=== PATIENT | female | born 1955 | race Caucasian/White ===

== ENCOUNTER 2023-03-25 21:36 | Inpatient (IN) ==
[2023-03-25] MEDS ORDERED: Etomidate 20 mg/10 ml 2 MG/ML 10 ml VIAL IV ONE (22:08)
[2023-03-25] MEDS ORDERED: Metoprolol Tartrate 5 mg VIAL 5 ml VIAL (1 mg/ml) IV ONE (22:17)
[2023-03-25 22:18] LABS: ABS Eosinophils 0.1 10^3/uL (0.0-0.5); ABS Lymphocytes 3.7 10^3/uL (1.0-4.8); ABS Monocytes 0.2 10^3/uL (0.0-0.9); ABS Nucleated RBC 0.08 10^3/ul; Eosinophil % 0.5 %; Hematocrit 43.9 % (35-45); Hemoglobin 13.9 g/dL (11.5-14.3); Lymphocyte % 33.8 %; Mean Corpuscular Hemoglobin 32.4 pg (27-33); Mean Corpuscular Hgb Conc 31.7 g/dL (31-36); Mean Corpuscular Volume 102.3 fL (80-97); Mean Platelet Volume 8.8 fL (7.5-11.2); Nucleated Red Blood Cells % 0.7 %/100WBC (0.0-0.8); Platelet Count 289 10^3/uL (150-450); Red Blood Count 4.29 10^6/uL (3.63-4.92); Red Cell Distribution Width 17.3 % (12-17)
[2023-03-25 22:32] LABS: INR 1.94 (0.83-1.13)
[2023-03-25 22:43] LABS: Albumin 3.8 g/dL (3.2-5.2); Calcium 9.4 mg/dL (8.6-10.3); Creatinine, Serum 1.97 mg/dL (0.51-0.95); Globulin 3.8 g/dL (2-4); Magnesium 2.3 mg/dL (1.9-2.7); Total Bilirubin 1.6 mg/dL (0.2-1.0); Total Protein 7.6 g/dL (6.4-8.9); eGFR CKD-EPI 26.9 (>60)
[2023-03-25 22:44] LABS: Potassium 3.4 mmol/L (3.5-5.0)
[2023-03-25] MEDS ORDERED: Potassium Chlor 20 meq TAB.ER PO ONE (23:21)
[2023-03-25 23:53] LABS: High Sensitivity Troponin 1 Hr 44 pg/mL (<15)
[2023-03-26] MEDS ORDERED: LISINOPRIL 10 MG PO PRN (04:19)
[2023-03-26] MEDS ORDERED: NS 0.9% 500 ml BAG 500 ML IV ONE (04:37)
[2023-03-26 05:40] LABS: ABS Basophils 0.1 10^3/uL (0.0-0.1); ABS Lymphocytes 1.6 10^3/uL (1.0-4.8); ABS Monocytes 0.2 10^3/uL (0.0-0.9); ABS Neutrophils 7.8 10^3/uL (1.5-7.6); ABS Nucleated RBC 0.02 10^3/ul; Hematocrit 36.4 % (35-45); Hemoglobin 12.1 g/dL (11.5-14.3); Lymphocyte % 16.1 %; Mean Corpuscular Hemoglobin 32.4 pg (27-33); Mean Corpuscular Hgb Conc 33.3 g/dL (31-36); Mean Corpuscular Volume 97.4 fL (80-97); Nucleated Red Blood Cells % 0.2 %/100WBC (0.0-0.8); Platelet Count 234 10^3/uL (150-450); Red Blood Count 3.74 10^6/uL (3.63-4.92); Red Cell Distribution Width 16.2 % (12-17); White Blood Count 9.6 10^3/uL (3.8-11.8)
[2023-03-26 06:06] LABS: ALT 106 U/L (7-52); Albumin 3.5 g/dL (3.2-5.2); Albumin/Globulin Ratio 1.1 (1-3); Alkaline Phosphatase 152 U/L (35-149); Anion Gap 6 mmol/L (2-16); Blood Urea Nitrogen 21 mg/dL (6-24); CO2 Carbon Dioxide 26 mmol/L (22-32); Calcium 9.1 mg/dL (8.6-10.3); Chloride 108 mmol/L (101-111); Creatinine, Serum 1.62 mg/dL (0.51-0.95); Globulin 3.2 g/dL (2-4); Glucose 94 mg/dL (70-100); Sodium 140 mmol/L (135-145); Total Bilirubin 0.8 mg/dL (0.2-1.0); Total Protein 6.7 g/dL (6.4-8.9)
[2023-03-26 06:43] LABS: TSH Ultra Thyroid Stim Horm 0.57 mcIU/mL (0.34-5.60)
[2023-03-26 11:37] LABS: Activated Partial Thrombo Time 32.3 seconds (26.0-38.0); INR 2.23 (0.83-1.13)
[2023-03-26] MEDS: FLUTICAS/UMECLI/VILANT 100-62.5-25 MDI (NF) INH SCH (12:06)
[2023-03-26] MEDS: KCL 20 MEQ/100 ML IVPREMIX 20 MEQ/100 ML BAG IV SCH ×2 (14:21→17:45)
[2023-03-26] MEDS ORDERED: Sulfur Hexaflouride MICROSPHR 25 MG VIAL ONE (15:50)
[2023-03-26 19:56] LABS: Calcium 8.9 mg/dL (8.6-10.3); Creatinine, Serum 1.36 mg/dL (0.51-0.95); Potassium 3.8 mmol/L (3.5-5.0); eGFR CKD-EPI 41.9 (>60)
[2023-03-26] MEDS: Heparin 5000 UNITS/ML 1 mL VIAL SUBCUT SCH (20:44)
[2023-03-27 05:58] LABS: ABS Eosinophils 0.1 10^3/uL (0.0-0.5); ABS Lymphocytes 1.8 10^3/uL (1.0-4.8); ABS Monocytes 0.3 10^3/uL (0.0-0.9); ABS Neutrophils 3.2 10^3/uL (1.5-7.6); ABS Nucleated RBC 0.02 10^3/ul; Hematocrit 34.7 % (35-45); Hemoglobin 11.3 g/dL (11.5-14.3); Lymphocyte % 33.4 %; Mean Corpuscular Hemoglobin 32.2 pg (27-33); Mean Corpuscular Hgb Conc 32.6 g/dL (31-36); Mean Corpuscular Volume 98.9 fL (80-97); Nucleated Red Blood Cells % 0.4 %/100WBC (0.0-0.8); Platelet Count 197 10^3/uL (150-450); Red Blood Count 3.51 10^6/uL (3.63-4.92); White Blood Count 5.4 10^3/uL (3.8-11.8)
[2023-03-27 06:16] LABS: Calcium 8.9 mg/dL (8.6-10.3); Creatinine, Serum 1.25 mg/dL (0.51-0.95); Potassium 4.2 mmol/L (3.5-5.0); eGFR CKD-EPI 46.4 (>60)
[2023-03-27] MEDS: FLUTICAS/UMECLI/VILANT 100-62.5-25 MDI (NF) INH SCH (07:45)
[2023-03-27 08:16] LABS: Magnesium 1.9 mg/dL (1.9-2.7)
[2023-03-27] MEDS: Heparin 5000 UNITS/ML 1 mL VIAL SUBCUT SCH (10:16)
[2023-03-27] MEDS ORDERED: Magnesium Sulfate 2 gm BAG 2 GM/50 ML BAG IVPB ONE (12:05)
[2023-03-27] MEDS ORDERED: Lactated Ringers 1000 ml BAG 500 ML IV ONE (14:56)
[2023-03-27] MEDS: Enoxaparin 100 MG/ML SYR SUBCUT SCH (17:28)
[2023-03-28] MEDS: Enoxaparin 100 MG/ML SYR SUBCUT SCH ×2 (05:44→17:54)
[2023-03-28 06:30] LABS: Calcium 8.7 mg/dL (8.6-10.3); Creatinine, Serum 1.11 mg/dL (0.51-0.95); Potassium 4.2 mmol/L (3.5-5.0); eGFR CKD-EPI 53.5 (>60)
[2023-03-28] MEDS: FLUTICAS/UMECLI/VILANT 100-62.5-25 MDI (NF) INH SCH (07:58)
[2023-03-29] MEDS: Enoxaparin 100 MG/ML SYR SUBCUT SCH ×2 (05:53→17:22)
[2023-03-29] MEDS ORDERED: Lactated Ringers 1000 ml BAG 1,000 ML IV ONE (07:30)
[2023-03-29] MEDS: FLUTICAS/UMECLI/VILANT 100-62.5-25 MDI (NF) INH SCH (07:37)
[2023-03-29 12:02] LABS: Calcium 8.6 mg/dL (8.6-10.3); Creatinine, Serum 0.93 mg/dL (0.51-0.95); Potassium 4.1 mmol/L (3.5-5.0); eGFR CKD-EPI 66.1 (>60)
[2023-03-30 06:38] LABS: Calcium 8.6 mg/dL (8.6-10.3); Potassium 3.9 mmol/L (3.5-5.0); eGFR CKD-EPI 60.6 (>60)
[2023-03-30] MEDS: FLUTICAS/UMECLI/VILANT 100-62.5-25 MDI (NF) INH SCH (07:15)
[2023-03-30 08:33] LABS: Magnesium 1.8 mg/dL (1.9-2.7)
[2023-03-30] MEDS ORDERED: Heparin 1,000 UNIT/ML 10 ml (10,000 UNITS) CATHLAB/DIALYSIS ONE (08:59)
[2023-03-30] MEDS ORDERED: VERAPAMIL 2.5 MG/ML 2 ML VIAL ** 5 mg/2 ml ONE (08:59)
[2023-03-30] MEDS ORDERED: fentaNYL 100 mcg/2 ml 50 MCG/ML VIAL ONE (08:59)
[2023-03-30] MEDS ORDERED: Midazolam 5 mg/5 ml VIAL 1 mg/ml 5 ml VIAL (5 mg) ONE (08:59)
[2023-03-30] MEDS ORDERED: nitroGLYCERIN DRIP 25,000 MCG/250 ML BTL ONE (09:00)
[2023-03-30] MEDS ORDERED: Iohexol 350 (CONTRAST) 200 ML MDV IV ONE (09:00)
[2023-03-30] MEDS ORDERED: Heparin 2 UNITS/ML 1000 mls 2,000 ML IV ONE (09:00)
[2023-03-30] MEDS ORDERED: Lidocaine 1% MPF 5 ML VIAL ONE (09:00)
[2023-03-30] MEDS ORDERED: Midazolam 10 mg/10 ml VIAL 1 mg/ml 10 ml VIAL (10 mg) IV SLOW PU ONE (09:18)
[2023-03-30] MEDS ORDERED: fentaNYL 100 mcg/2 ml 50 MCG/ML VIAL IV SLOW PU ONE (09:18)
[2023-03-30] MEDS ORDERED: NS 0.9% 1000 ml BAG 1,000 ML IV SCH (09:45)
[2023-03-31 05:55] LABS: ABS Eosinophils 0.1 10^3/uL (0.0-0.5); ABS Lymphocytes 1.5 10^3/uL (1.0-4.8); ABS Monocytes 0.2 10^3/uL (0.0-0.9); ABS Neutrophils 3.4 10^3/uL (1.5-7.6); Eosinophil % 1.3 %; Hematocrit 31.7 % (35-45); Hemoglobin 10.6 g/dL (11.5-14.3); Lymphocyte % 28.6 %; Mean Corpuscular Hgb Conc 33.4 g/dL (31-36); Mean Corpuscular Volume 98.8 fL (80-97); Mean Platelet Volume 10.2 fL (7.5-11.2); Nucleated Red Blood Cells % 0.1 %/100WBC (0.0-0.8); Platelet Count 132 10^3/uL (150-450); White Blood Count 5.1 10^3/uL (3.8-11.8)
[2023-03-31 06:11] LABS: Calcium 8.7 mg/dL (8.6-10.3); Creatinine, Serum 0.89 mg/dL (0.51-0.95); Magnesium 1.8 mg/dL (1.9-2.7); Potassium 4.1 mmol/L (3.5-5.0); eGFR CKD-EPI 69.7 (>60)
[2023-03-31] MEDS ORDERED: Magnesium Sulfate 2 gm BAG 2 GM/50 ML BAG IVPB ONE (10:09)
[2023-03-31] MEDS: FLUTICAS/UMECLI/VILANT 100-62.5-25 MDI (NF) INH SCH (10:44)
[2023-03-31 14:16] VITALS: BP 113/64
== END 2023-03-31 15:40 | disposition home or self-care (01) | DRG 192 ==
LOC: EDHOLD 21:36 → ED 21:36 → SUATTDRO 03-26 02:55 → MEDTELE 03-26 15:41
PROVIDERS: ADMIT Student in an Organized Health Care Education/Training Program; ATTEND Hospitalist